=== PATIENT | female | born 1985 | race Caucasian/White ===

== ENCOUNTER 2017-01-27 12:28 | Emergency (ER) | payer SELFPAY ==
[~2017-01-27] VITALS: Ht 175.3 cm; Wt 61.2 kg
--- NOTE | 2017-01-27 12:35 | NUR ---
PT BIB RA S/P SYNCOPAL EPISODE AT [facility]. PT BECAME DIAPHORETIC AND FELT SHAKY THEN HAD A WITNESSED SYNCOPAL EPISODE WITHOUT HEAD TRAUMA. RESP EVEN UNLABORED. SKIN WARM NONDIAPHORETIC CURRENTLY. PT STATES SHE DOES NOT FEEL DIAPHORETIC OR SHAKEY ANYMORE. VSS. A/OX4. IN ER BED 11 ON MONITOR.
[2017-01-27] MEDS ORDERED: IV NS 0.9% 1,000 ML ONE (12:56)
[2017-01-27] MEDS ORDERED: IV SET PRIMARY 1 EA INFUS.SET MC ONE (12:56)
[2017-01-27] MEDS ORDERED: IV NS 0.9% 1,000 ML BAG IV ONE (13:00)
[2017-01-27 13:23] LABS: BASOPHILS # (AUTO) 0.1 /CMM (0.0-0.2); BASOPHILS % (AUTO) 1.8 % (0.0-2.0); EOSINOPHILS % (AUTO) 0.6 % (0.0-6.0); HEMATOCRIT 38 % (33-45); HEMOGLOBIN 13.5 g/dL (11.5-14.8); LYMPHOCYTES # (AUTO) 0.3 /CMM (0.8-4.8); LYMPHOCYTES % (AUTO) 5.4 % (20.0-44.0); MEAN CORPUSCULAR HEMOGLOBIN 32 PG (26.0-33.0); MEAN CORPUSCULAR HGB CONC 35 g/dl (31.0-36.0); MEAN CORPUSCULAR VOLUME 91 fL (82-100); MONOCYTES # (AUTO) 0.2 /CMM (0.1-1.30); MONOCYTES % (AUTO) 4.1 % (2.0-12.0); NEUTROPHILS # (AUTO) 4.3 /CMM (1.8-8.9); NEUTROPHILS % (AUTO) 88.1 % (43.0-81.0); PLATELET COUNT (AUTO) 88 /CMM (150-450); RDW COEFFICIENT OF VARIATION 11.8 (11.5-15.0); RED BLOOD CELL COUNT(AUTO) 4.22 MIL/uL (4.0-5.2); WHITE BLOOD COUNT (AUTO) 4.9 K/uL (4.3-11.0)
[2017-01-27 13:29] LABS: CALCIUM, SERUM 8.2 mg/dL (8.5-10.1); CREATININE 0.7 mg/dL (0.6-1.3); POTASSIUM 4.5 mmol/L (3.5-5.1)
--- NOTE | 2017-01-27 13:30 | NUR ---
VSS. NAD NOTED. ALL NEEDS ATTENDED TO.
[2017-01-27 13:35] LABS: ALBUMIN 3.5 g/dL (3.4-5.0); BILIRUBIN,DIRECT 0.1 mg/dL (0.0-0.2); BILIRUBIN,TOTAL 0.8 mg/dL (0.2-1.0); TOTAL PROTEIN, SERUM 6.1 g/dL (6.4-8.2)
--- NOTE | 2017-01-27 14:02 | NUR ---
AWAITING URINE RESULTS FOR DISCHARGE. NAD NOTED. VSS.
[2017-01-27 14:57] VITALS: BP 110/68
--- NOTE | 2017-01-27 15:00 | NUR ---
Patient discharged to home in stable condition. Written and verbal after care instructions given. Patient verbalizes understanding of instruction. IV removed. Catheter intact and site benign. Pressure and 4x4 applied to site. No bleeding noted. AMBULATORY WITH STEADY GAIT. NAD NOTED.
[2017-01-27 19:04] LABS: LYMPHOCYTES % (MANUAL) 7 % (16-48); MONOCYTES % (MANUAL) 4 % (0-11.0); NEUTROPHILS % (MANUAL) 89 (42-76); PLATELET ESTIMATE DECREASED
== END 2017-01-27 14:59 | disposition home or self-care (01) ==
LOC: ER 12:30
DX: R55 Syncope and collapse (principal)
CPT/HCPCS: 36415; 80048; 80076; 84703; 85025; 93005; 96360; 99285; A4606; J7030; Z7610